=== PATIENT | male | born 1965 | race Caucasian/White ===

== ENCOUNTER 2023-08-02 14:00 | Observation (INO) | payer BC ==
[~2023-08-02 14:00] MED LIST: Iopamidol-370 76% 500 ML MDV (1 ML CHARGE) ONE
[2023-08-02] MEDS ORDERED: Morphine 4 MG/ML VIAL ONE ×2 (14:32→17:45)
[2023-08-02] MEDS ORDERED: Ketorolac Tromethamine 30 MG (1 mL) VIAL ONE (14:32)
[2023-08-02] MEDS ORDERED: Ondansetron PF 4 MG/2 ML Vial ONE (14:32)
[2023-08-02 14:51] LABS: #Eosinphils 0.2 thou/uL (0.0-0.7); #Monocytes 0.5 thou/uL (0.11-0.59); #Neutrophils 5.2 thou/uL (1.40-6.50); %Basophils 0.5 % (0.0-1.0); %Eosinophils 2.8 % (0.0-10.0); %Monocytes 6.6 % (0.0-10.0); %Neutrophils 68.8 % (42.0-75.0); Hematocrit 42.3 % (42.0-52.0); Hemoglobin 13.7 g/dL (14.0-18.0); Mean Corpuscular HGB CONC 32.4 g/dL (32.0-36.0); Mean Corpuscular Hemoglobin 29.6 pg (27.0-31.0); Mean Corpuscular Volume 91.4 fl (78.0-98.0); Mean Platelet Volume 10.3 fL (7.4-10.4); Platelet Count 238 10x3/uL (130-400); RBC Distribution Width 12.8 % (11.5-14.5); Red Blood Cell (RBC) Count 4.63 mill/uL (4.70-6.10); White Blood Cell (WBC) Count 7.5 10x3/uL (4.8-10.8)
[2023-08-02 15:20] LABS: AST (SGOT) 17 U/L (5-34); Bilirubin, Total 0.8 mg/dL (0.2-1.2); Calcium 9.6 mg/dL (7.8-10.44); Carbon Dioxide 24 mmol/L (22-29); Chloride 101 mmol/L (98-107); Potassium 3.6 mmol/L (3.5-5.1); Protein, Total 7.2 g/dL (6.0-8.3); Sodium 136 mmol/L (136-145)
[2023-08-02 16:06] LABS: Albumin 4.6 g/dL (3.5-5.0); Globulin 2.6 g/dL (2.4-3.5)
[2023-08-02 16:09] LABS: Glucose 86 mg/dL (70-105)
[2023-08-02 16:10] LABS: Anion Gap 17 mmol/L (10-20)
[2023-08-02 16:11] LABS: Alkaline Phosphatase 106 U/L (40-110)
[2023-08-02 16:12] LABS: Calc. Creatinine Clearance 0 mL/min (70-130); Estimated GFR 91
[2023-08-02 16:13] LABS: BUN (Urea Nitrogen) 15 mg/dL (8.4-25.7)
[2023-08-02 16:14] LABS: ALT (SGPT) 22 U/L (8-55)
[2023-08-02 16:15] LABS: Lipase 12 U/L (8-78)
[2023-08-02] MEDS ORDERED: Midazolam HCl 2 mg/2 ml Vial ONE (16:55)
[2023-08-02 17:10] LABS: Bacteria/HPF None Seen HPF (None Seen); Bilirubin Negative (Negative); Blood, Urine Negative (Negative); CAUTI Indications for Culture Pelvic or flank pain; Clarity Clear (Clear); Glucose, Urine (Dipstick) Normal (Negative); Ketone, Urine Negative (Negative); Leukocyte Negative Leu/uL (Negative); Nitrite Negative (Negative); Protein, Urine (Dipstick) Negative (Neg-Trace); RBC/HPF 0-3 HPF (0-3); Squamous Epithelial 0-3 HPF (0-3); Urobilinogen Normal mg/dL (Less than 2); WBC/HPF 0-3 HPF (0-3); pH, Urine 6.5 (5.0-9.0)
[2023-08-02 17:13] LABS: Specific Gravity, Urine Greater than 1.060 (1.002-1.036)
[2023-08-02 17:15] LABS: Urine Culture Reflex No No
[2023-08-02] MEDS ORDERED: Ondansetron PF 4 MG/2 ML Vial IVP PRN (18:11)
[2023-08-02] MEDS ORDERED: Acetaminophen 650 MG Suppository PR PRN (18:11)
[2023-08-02] MEDS ORDERED: Acetaminophen 325 MG TAB PO PRN (18:11)
[2023-08-02] MEDS ORDERED: Ondansetron ODT 4 MG TAB PO PRN (18:11)
[2023-08-02 19:57] VITALS: BMI 30.2
[2023-08-02] MEDS: Famotidine 20 MG TAB PO SCH (20:57)
[2023-08-02] MEDS: Morphine 2 MG/ML VIAL SLOW IVP PRN (20:58)
[2023-08-02] MEDS: Ketorolac Tromethamine 30 MG (1 mL) VIAL IVP PRN (21:51)
[2023-08-02] MEDS: HYDROcodone/Acetaminophen 5/325 mg Tablet PO PRN (21:52)
[2023-08-02] MEDS ORDERED: Cyclobenzaprine 10 MG TAB PO PRN (22:53)
[2023-08-03 06:27] LABS: #Eosinphils 0.2 thou/uL (0.0-0.7); #Monocytes 0.5 thou/uL (0.11-0.59); #Neutrophils 3.9 thou/uL (1.40-6.50); %Basophils 0.7 % (0.0-1.0); %Eosinophils 2.8 % (0.0-10.0); %Lymphocytes 23.2 % (21.0-51.0); %Monocytes 8.5 % (0.0-10.0); %Neutrophils 64.5 % (42.0-75.0); Hematocrit 36.6 % (42.0-52.0); Hemoglobin 11.6 g/dL (14.0-18.0); Mean Corpuscular HGB CONC 31.7 g/dL (32.0-36.0); Mean Corpuscular Hemoglobin 30.1 pg (27.0-31.0); Mean Platelet Volume 10.8 fL (7.4-10.4); Platelet Count 158 10x3/uL (130-400); RBC Distribution Width 13.1 % (11.5-14.5); Red Blood Cell (RBC) Count 3.85 mill/uL (4.70-6.10)
[2023-08-03 06:28] LABS: Mean Corpuscular Volume 95.1 fl (78.0-98.0)
[2023-08-03 06:47] LABS: Anion Gap 13 mmol/L (10-20); BUN (Urea Nitrogen) 16 mg/dL (8.4-25.7); Calc. Creatinine Clearance 139 mL/min (70-130); Calcium 8.5 mg/dL (7.8-10.44); Carbon Dioxide 24 mmol/L (22-29); Chloride 105 mmol/L (98-107); Estimated GFR 100; Glucose 87 mg/dL (70-105); Potassium 4.5 mmol/L (3.5-5.1); Sodium 137 mmol/L (136-145)
[2023-08-03] MEDS: Cyclobenzaprine 10 MG TAB PO SCH (08:50)
[2023-08-03] MEDS: Senokot S 8.6-50 MG TAB PO SCH (08:51)
[2023-08-03 17:07] VITALS: BP 149/82; TEMP 98.1
== END 2023-08-03 17:00 | disposition home or self-care (01) ==
LOC: ERS 14:00 → T4-B 19:52
PROVIDERS: ADMIT Student in an Organized Health Care Education/Training Program; ATTEND Internal Medicine
DX: M51.36 Other intervertebral disc degeneration, lumbar region (principal); Z79.82 Long term (current) use of aspirin; Z79.899 Other long term (current) drug therapy; I10 Essential (primary) hypertension; Z90.89 Acquired absence of other organs; Z98.890 Other specified postprocedural states; K63.89 Other specified diseases of intestine; E66.9 Obesity, unspecified; Z68.30 Body mass index [BMI] 30.0-30.9, adult; D64.9 Anemia, unspecified
CPT/HCPCS: 36415; 72148; 74177; 80048; 80053; 81001; 83690; 85025; 93005; 96374; 96375; 96376; G0378; J1885; J2250; J2270; J2272; J2405; Q9967

== ENCOUNTER 2024-06-12 08:21 | Outpatient (CLI) | payer BC | END 2024-06-12 08:22 | disposition home or self-care (01) | LOC: BICULT 08:21 | PROVIDERS: ATTEND Nurse Practitioner Family | DX: E78.2 Mixed hyperlipidemia (principal); R74.8 Abnormal levels of other serum enzymes; K76.0 Fatty (change of) liver, not elsewhere classified | CPT/HCPCS: 76705 ==